=== PATIENT | male | born 1975 | race Caucasian/White ===

== ENCOUNTER → 2020-12-24 | Outpatient (CLI) | payer OTHER ==
[~2020-12-24] VITALS: Ht 177.8 cm; Wt 72.6 kg
[~2020-12-24] MED LIST: BENTYL 10 MG CA10 MG PO; CHILDREN'S ZYRT10 M1 PO; DECARA1250 MCG PO; LIPITOR 20 MG T20 M1 PO
[2020-12-24 08:51] VITALS: BP 123/66
[2020-12-24 09:15] LABS: HEMOGLOBIN 14.6 gm/dL (14.0-18.0); MCHC 32.5 g/dL (28.0-37.0); MCV 98.2 fL (80.0-100.0); RBC 4.58 mil/uL (4.50-6.00); RDW 12.7 % (10.5-14.5); WBC 3.8 thou/uL (4.0-11.0)
[2020-12-24 09:20] LABS: CALCIUM 9.6 mg/dL (8.5-10.1); CREATININE 0.9 mg/dL (0.7-1.3); POTASSIUM 3.8 mmol/L (3.5-5.1)
--- NOTE | 2021-01-05 22:35 | CATHLAB ---
[facility] [place] [address] INVASIVE PROCEDURE REPORT Name: ALEXANDRAZARIA Room #: REG TA PamelaKtPippa#: [id number] Admission: 12/24/20 Attend Phys: Luis Alberto Cain Discharge: Date of : 71 Report #: [id number] REPORT FOR: cc: JERI GONZALES JESSICA RNP Lammoglia, Francisco J. MD ~ APPROVED REPORT Study performed: 12/24/2020 12:09:19 Patient Details Patient Status: Out-Patient Room #: The patient is a 45 year-old male Event Personnel Luis Alberto Cain Senior Integration Architect, Reynaldo Maddox RTR Scrub, Katheryn Brennan RTR Monitor, Jihan Owusu RN washing and screening plant supervisor Performed Art Access - R femoral artery* Left Heart Cath w/or w/o Coronaries [id number] [facility] [place] [address] Initial Mod Sed Same Phys/QHP [facility] [id number] Mod Sed Same Phys/QHP Ea [id number] Hemostasis with Manual pressure, supervision of conscious sedation. Indication Chest pain Procedure Narrative The Right Groin^ was infiltrated with 1% Lidocaine subcutaneous anesthesia. A PINNACLE 4FR Sheath #[id number] sheath was inserted into the RFA^. Coronary angiography was performed using coronary diagnostic catheters. The right coronary system was accessed and visualized with a JR4 catheter. The left coronary system was accessed and visualized with a JL4 catheter. The left ventricle was accessed and visualized with a PIGTAIL catheter. Hemostasis was obtained with manual pressure following sheath removal without any complications. The patient tolerated the procedure well and there were no complications associated with the procedure. There was no hematoma. Intraoperative Conscious Sedation Sedation start time: 1302 Case end Time: 1328 [facility] [address] [place] [address] INVASIVE PROCEDURE REPORT Name: ALEXANDRAZARIA Room #: REG Darlene#: [id number] Admission: 12/24/20 Attend Phys: Luis Alberto Schreiber Discharge: Date of : 71 Report #: [id number] Fluoro Time: 1.80 minutes Dose: DAP 1493.20 cGycm2 218 mGy Contrast Type and Amount: Omnipaque 50 ml Coronary Angiography The patient's coronary anatomy is left dominant. Diagnostic Cath Left Main Short to nonexistent with common ostium to LAD and LCx. no significant lesions noted LAD Large caliber type III veseel which rapidly tapers after origin of first septal and first diagnoal vessels. the LAD continues in the anterior interventricular sulcus giving rise to diagonal and septal vessels. there are luminal irregularities but no high grade lesions Diagonal 1 small caliber vessel coursing in the anterolateral wall of the LV with irregularities Circumflex Large caliber dominant vessel givinng rise to several small marginal branches and a posterior descending branch. there are luminal irregularities but no flow limiting lesions OM1 small insignificant caliber vessel OM2 small caliber vessel coursing towards the apex without significant obstructive lesions OM3 smalerl caliber vessel coursing towards the apex without significant obstructive lesions L PDA moderate to large caliber vessel proceeding in the posterior interventricular sulcus without significant high grade lesions Right Coronary small nondominant vessel terminates prior to reaching the crux of the heart Left Ventriculography Left Ventriculography was not performed. Hemodynamics The aortic pressure is 112/66 mmHg with a mean of 91 mmHg. The left ventricular pressure is 121/3 mmHg with a mean of mmHg. The left ventricular end diastolic pressure is 13 mmHg. Conclusion 1. Essentially normal coronary arteries 2. Normal hemodynamics Recommendations [facility] [address] [place] [address] INVASIVE PROCEDURE REPORT Name: ZARIA MORRIS Room #: REG [facility] [id number] Admission: 12/24/20 Attend Phys: Luis Alberto Schreiber Discharge: Date of : 71 Report #: [id number] Cardiac Risk Reduction Program Medical Therapy <ELECTRONICALLY SIGNED> By: Luis Alberto Cain MD 01/05/212234 34 34 Luis Alberto Cain MD /INF
== END | disposition home or self-care (01) ==
LOC: CATH 07:44
PROVIDERS: ATTEND Internal Medicine
DX: R07.9 Chest pain, unspecified (principal); F41.9 Anxiety disorder, unspecified; Z98.890 Other specified postprocedural states; Z79.899 Other long term (current) drug therapy